=== PATIENT | male | born 1960 | race Caucasian/White ===

== ENCOUNTER → 2017-06-26 | Day surgery (SDC) | payer OTHER ==
[~2017-06-26] VITALS: Ht 170.2 cm; Wt 72.6 kg
--- NOTE | 2017-06-26 12:18 | Operative Report ---
Operative/Inv Procedure Report Surgery Date: 06/26/17 Name of Procedure: Cystoscopy and TURBT Pre-Operative Diagnosis: Bladder tumor Post-Operative Diagnosis: same Estimated Blood Loss: less than 50ml Surgeon/Deck Officer: Johnnie Babb MD Anesthesia: laryngeal mask airway Drains: 20 fr coude catheter Specimens: bladder tumor chips Complications: none Condition: stable Operative Indication: Gross hematuria and bladder mass on office cystoscopy Operative/Procedure Note Note: The patient was taken to the cystoscopy room and identified. As placed in supine position on the cystoscopy table. A timeout was executed appropriately with the patient awake. Gen. anesthesia induced via LMA. He was then placed in dorsolithotomy position. Bimanual rectal exam revealed a mildly enlarged, nonnodular prostate with no other abnormal pelvic masses. He was prepped and draped in usual fashion for cystoscopy. Surgical pause was executed appropriately. The 22 [place] cystoscope sheath was placed into the bladder under direct vision using the 30 lens. The anterior urethra was normal. The prostatic urethra showed trilobar prostatic hypertrophy with partial bladder outlet obstruction. The middle lobe of the prostate was significantly enlarged. Upon entering the bladder cystoscopy was performed. The bladder was mildly trabeculated. On the trigone more to the right than the left there was a raised papillary irregular mucosa. It was close to but did not abut either ureteral orifice. The remainder of the bladder was free of tumors and stones. At this point the bladder was left full and the cystoscope removed. A 26 [place] resectoscope sheath was placed into the bladder using the obturator. The working element was inserted. The bladder mass was resected. Care was taken to preserve both ureteral orifices. The Caitlyn evacuator was used to remove all tissue chips from the bladder. The base of the resection was cauterized. This point no significant bleeding was noted. The bladder was left full and the resectoscope removed. A 20 [place] coud catheter was then placed with a leg bag for drainage. Urine drainage was light pink. Patient tolerated the procedure well and as completion was taken to recovery room in stable condition. Findings: Abnormal bladder mucosa on the trigone Discharge Disposition: PACU
== END ==
LOC: STS 00:48
DX: D30.3 Benign neoplasm of bladder (principal); N30.20 Other chronic cystitis without hematuria; N40.1 Benign prostatic hyperplasia with lower urinary tract symptoms; N13.8 Other obstructive and reflux uropathy; N32.89 Other specified disorders of bladder; R31.0 Gross hematuria; R97.20 Elevated prostate specific antigen [PSA]
CPT/HCPCS: J0131; J0690; J2250